=== PATIENT | female | born 1955 | race Caucasian/White ===

== ENCOUNTER → 2019-12-25 07:43 | Outpatient (CLI) | payer OTHER, SELFPAY ==
--- NOTE | 2019-12-25 07:45 | DI.MRI.S_ITS ---
BREAST MRI OF BOTH BREASTS- WITH CAD: 12/25/2019 CLINICAL: Right breast cancer. Comparison is made to exams dated: 03/19/2018 mammogram, 10/13/2016 mammogram, and 11/21/2019 mammogram - [facility]. Interpretation of this MRI was correlated with available mammograms and ultrasounds. Informed consent was obtained from the patient. 20 cc of ProHance (Gadoteridol) nonionic contrast was injected. Axial T1, T2, sagittal T1, and pre and post contrast T1 images were obtained with a dedicated breast coil. Post processing was performed including computer aided calculations of any tumor volumes and dimensions. There is mild background parenchymal enhancement. Right breast: There is abnormal periareolar thickening and enhancement measuring approximately 3.0 x 4.0 cm in dimension and extending to a depth of approximately 1.3 cm. There is also abnormal enhancing extending into the retroareolar ducts. Kinetic enhancement curves demonstrate internal areas of moderate enhancement with plateau. Findings likely correspond to patient's biopsy proven Paget's disease. Within the upper inner quadrant, there is a segmental region of clustered non-mass enhancement involving an area of 2.6 cm in transverse extent by 6 cm in anteroposterior extent by 4.5 cm in craniocaudal extent. Kinetic enhancement curves demonstrate internal areas of rapid initial enhancement with washout. Findings are highly suspicious for malignancy. Within the upper outer quadrant anteriorly on series 14 image 88, there is a small focus of enhancement measuring approximately 0.5 cm. Although there are a few scattered foci of background enhancement elsewhere in the breast, this focus is slightly prominent and demonstrates moderate initial enhancement with washout on kinetic enhancement curves. The finding is nonspecific but mildly suspicious. Left breast: No discrete mass or suspicious enhancement within the left breast to suggest malignancy. Miscellaneous: There is a mildly prominent lymph node within the right axilla with cortical thickening measuring up to approximately 0.7 cm. No left axillary or internal mammary lymphadenopathy by size criteria. The visualized abdomen redemonstrates a cyst in the posterior right hepatic lobe as seen on the prior MRI. IMPRESSION: KNOWN BIOPSY PROVEN MALIGNANCY 1. Abnormal skin thickening and enhancement in the right perihilar region consistent with patient's biopsy proven Paget's disease. 2. Abnormal segment the region of clustered non-mass enhancement in the upper inner quadrant of the right breast highly suspicious for malignancy. In retrospect, there are indistinct clustered asymmetries in this region on mammography. Additional diagnostic mammography images with possible stereotactic biopsy is recommended. 3. Prominent right axillary lymph node with cortical thickening. Recommend further evaluation with a dedicated axillary ultrasound. 4. Nonspecific focus of enhancement in the anterior upper-outer quadrant of the right breast. Recommend ultrasound evaluation to evaluate for a possible small mass. This exam was interpreted at Station ID: [id number]. Electronically Signed By: Noah Walden M.D. ddp/:12/25/2019 11:55:23 copy to: SABI Paredes LEAH, ph: [phone] ACR BI-RADS Category 6: Known biopsy proven malignancy 3346F
== END ==
PROVIDERS: PCP Internal Medicine; Referring Provider Internal Medicine Hematology & Oncology; Visit Provider Internal Medicine Hematology & Oncology
DX: C50.011 Malignant neoplasm of nipple and areola, right female breast (principal)
CPT/HCPCS: 77049; A9579

== ENCOUNTER → 2021-02-16 10:48 | Outpatient (CLI) | payer OTHER, SELFPAY ==
--- NOTE | 2021-02-16 | DI.MG.S_ITS ---
BILATERAL DIGITAL DIAGNOSTIC MAMMOGRAM 3D/2D POST LUMPECTOMY: 02/16/2021 CLINICAL: Right breast DCIS. Comparison is made to exams dated: 12/25/2019 breast MRI - [facility], 11/21/2019 mammogram, and 03/19/2018 mammogram - [facility]. There are scattered fibroglandular elements in both breasts. The patient is status post lumpectomy right breast. No significant masses, calcifications, or other findings are seen in either breast. IMPRESSION: NEGATIVE There is no mammographic evidence of malignancy. Return to annual mammogram screening schedule per oncology is recommended. Findings and recommendations were conveyed to the patient at time of exam. This exam was interpreted at Station ID: [id number]. NOTE: For mammograms, a report in lay terms will be sent to the patient. Approximately 15% of breast malignancies will not be visualized mammographically. In the management of a palpable breast mass, a negative mammogram must not discourage biopsy of a clinically suspicious lesion. Electronically Signed By: Sujata aldana/:02/16/2021 11:45:43 copy to: SABI Paredes LEAH, ph: [phone] copy to: Josue Looney letter sent: Normal Exam ACR BI-RADS Category 1: Negative 3341F
== END ==
PROVIDERS: PCP Internal Medicine; Referring Provider Internal Medicine Hematology & Oncology; Visit Provider Internal Medicine Hematology & Oncology
DX: D05.11 Intraductal carcinoma in situ of right breast (principal)
CPT/HCPCS: 77066; G0279

== ENCOUNTER → 2022-02-27 07:58 | Outpatient (CLI) | payer OTHER, SELFPAY ==
--- NOTE | 2022-02-27 | DI.MG.S_ITS ---
BILATERAL DIGITAL SCREENING MAMMOGRAM 3D/2D WITH CAD - RIGHT BREAST POST LUMPECTOMY: 02/27/2022 CLINICAL: Routine screening. Personal history of right breast cancer. Comparison is made to exams dated: 02/16/2021 mammogram - [facility], 11/21/2019 mammogram, and 03/19/2018 mammogram - [facility]. There are scattered fibroglandular elements in both breasts. Current study was also evaluated with a Computer Aided Detection (CAD) system. No significant masses, calcifications, or other findings are seen in either breast. There has been no significant interval change. IMPRESSION: NEGATIVE There is no mammographic evidence of malignancy. A 1 year screening mammogram is recommended. This exam was interpreted at Station ID: [id number]. NOTE: For mammograms, a report in lay terms will be sent to the patient. Approximately 15% of breast malignancies will not be visualized mammographically. In the management of a palpable breast mass, a negative mammogram must not discourage biopsy of a clinically suspicious lesion. Electronically Signed By: Bhupinder braxton/gerry:02/27/2022 12:57:58 copy to: SABI Paredes LEAH, ph: [phone] copy to: Josue Looney letter sent: Normal Exam ACR BI-RADS Category 1: Negative 3341F
== END ==
PROVIDERS: PCP Internal Medicine; Referring Provider Internal Medicine Hematology & Oncology; Visit Provider Internal Medicine Hematology & Oncology
DX: Z12.31 Encounter for screening mammogram for malignant neoplasm of breast (principal); Z85.3 Personal history of malignant neoplasm of breast
CPT/HCPCS: 77063; 77067

== ENCOUNTER → 2023-02-28 10:53 | Outpatient (CLI) | payer OTHER, SELFPAY ==
--- NOTE | 2023-02-28 10:54 | DI.MG.S_ITS ---
BILATERAL DIGITAL SCREENING MAMMOGRAM 3D/2D WITH CAD: 02/28/2023 CLINICAL: Routine screening. Personal history of right breast cancer. Comparison is made to exams dated: 02/27/2022 mammogram, 02/16/2021 mammogram, 12/25/2019 breast MRI - [facility], 11/21/2019 mammogram, and 03/19/2018 mammogram - [facility]. There are scattered areas of fibroglandular density in both breasts (category b / 25%-50% glandular tissue). Current study was also evaluated with a Computer Aided Detection (CAD) system. No significant masses, calcifications, or other findings are seen in either breast. There has been no significant interval change. IMPRESSION: NEGATIVE There is no mammographic evidence of malignancy. A 1 year screening mammogram is recommended. This exam was interpreted at Station ID: [id number]. NOTE: For mammograms, a report in lay terms will be sent to the patient. Approximately 15% of breast malignancies will not be visualized mammographically. In the management of a palpable breast mass, a negative mammogram must not discourage biopsy of a clinically suspicious lesion. Electronically Signed By: Ambrose Miller M.D. acr/penrad:02/28/2023 17:21:00 copy to: SABI Paredes LEAH, ph: [phone] copy to: Josue Looney letter sent: Normal Exam ACR BI-RADS Category 1: Negative 3341F
== END ==
PROVIDERS: PCP Internal Medicine; Referring Provider Internal Medicine Hematology & Oncology; Visit Provider Internal Medicine Hematology & Oncology
DX: Z12.31 Encounter for screening mammogram for malignant neoplasm of breast (principal); D05.11 Intraductal carcinoma in situ of right breast
CPT/HCPCS: 77063; 77067

== ENCOUNTER → 2024-03-03 09:02 | Outpatient (CLI) | payer OTHER, SELFPAY ==
--- NOTE | 2024-03-03 09:05 | DI.MG.S_ITS ---
BILATERAL DIGITAL SCREENING MAMMOGRAM 3D/2D WITH CAD: 03/03/2024 CLINICAL: Routine screening. Personal history of right breast cancer. Comparison is made to exams dated: 02/28/2023 mammogram, 02/27/2022 mammogram, and 02/16/2021 mammogram - [facility]. There are scattered areas of fibroglandular density in both breasts (category b / 25%-50% glandular tissue). Current study was also evaluated with a Computer Aided Detection (CAD) system. No significant masses, calcifications, or other findings are seen in either breast. There has been no significant interval change. IMPRESSION: NEGATIVE There is no mammographic evidence of malignancy. A 1 year screening mammogram is recommended. This exam was interpreted at Station ID: [id number]. NOTE: For mammograms, a report in lay terms will be sent to the patient. Approximately 15% of breast malignancies will not be visualized mammographically. In the management of a palpable breast mass, a negative mammogram must not discourage biopsy of a clinically suspicious lesion. Electronically Signed By: Sujata aldana/gerry:03/03/2024 13:24:38 copy to: SABI Paredes LEAH, ph: [phone] copy to: Josue Looney letter sent: Normal Exam ACR BI-RADS Category 1: Negative 3341F
== END ==
LOC: MAMMO 09:04
PROVIDERS: PCP Internal Medicine; Referring Provider Internal Medicine Hematology & Oncology; Visit Provider Internal Medicine Hematology & Oncology
DX: Z12.31 Encounter for screening mammogram for malignant neoplasm of breast (principal); Z85.3 Personal history of malignant neoplasm of breast
CPT/HCPCS: 77063; 77067

== ENCOUNTER → 2025-03-05 12:42 | Outpatient (CLI) | payer OTHER, SELFPAY ==
--- NOTE | 2025-03-05 12:44 | DI.MG.S_ITS ---
MM screening mammo BI: 03/05/2025. BI-RADS: 2 CLINICAL: 69-year old female for bilateral screening mammogram. No Tyrer-Cuzick risk score calculation due to the patient's personal history of breast cancer. Patient reports a history of right breast carcinoma diagnosed at age 64. Status-post right lumpectomy with chemotherapy. No first-degree family history of breast cancer. Patient was diagnosed within the last 5 years. PRIOR EXAMS 03/03/2024, 02/28/2023, 02/27/2022, 02/16/2021, 12/25/2019. MAMMOGRAPHY TECHNIQUE: 2D and 3D (tomosynthesis) digital mammographic views obtained, with additional images as needed for full coverage. Current study was also evaluated with a Computer Aided Detection (CAD) system. DENSITY B. There are scattered areas of fibroglandular density. MAMMOGRAPHY FINDINGS Right: Benign-appearing post-surgical changes noted on the right. There are no suspicious masses, calcifications, or other findings in the breast. Left: No suspicious mass, asymmetry, microcalcification, or other abnormality seen. IMPRESSION: Right * No evidence of malignancy with benign findings. Left * No evidence of malignancy. RECOMMENDATIONS Bilateral * Annual screening mammography. OVERALL ASSESSMENT CATEGORY BI-RADS-2: Benign. [employer] recommends annual screening mammography beginning at age 40 for women with average risk of breast cancer. ELECTRONICALLY SIGNED: Eris Bowen M.D. on 03/05/2025 at 01:48:30 PM PT Interpreting Station ID: [id number]
== END ==
LOC: MAMMO 12:42
PROVIDERS: PCP Internal Medicine; Referring Provider Internal Medicine; Visit Provider Internal Medicine Hematology & Oncology
DX: Z12.31 Encounter for screening mammogram for malignant neoplasm of breast (principal); Z85.3 Personal history of malignant neoplasm of breast
CPT/HCPCS: 77063; 77067